=== PATIENT | male | born 1970 | race Hispanic/Latino ===

== ENCOUNTER 2018-01-06 15:47 | Emergency (ER) | payer BC ==
[2018-01-06 16:12] VITALS: BP 119/76; PULSE 63; RESP 18; TEMP 97.7; O2SAT 99
[2018-01-06] MEDS ORDERED: Tmp-Smz 800 mg-160 mg DS Tab PO STA (16:41)
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
[2018-01-06] MEDS ORDERED: Tmp-Smz 800 mg-160 mg DS Tab ONE (17:10)
== END 2018-01-06 17:58 | disposition home or self-care (01) ==
LOC: H.ER 15:47
DX: L03.011 Cellulitis of right finger (principal); M79.644 Pain in right finger(s); M79.89 Other specified soft tissue disorders